=== PATIENT | male | born 2000 | race African-American/Black ===

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

== ENCOUNTER 2022-02-14 17:51 | Emergency (ER) | payer OTHER ==
[~2022-02-14] VITALS: Ht 182.9 cm; Wt 62.0 kg
[~2022-02-14 17:51] MED LIST changes: +IBUP-2028 MT; +METH-653 MT
[2022-02-14] MEDS ORDERED: IPRATROPIUM BROMIDE (0.02%) 0.5MG/2.5ML NEB HHN STA ×2 (18:02→19:14)
[2022-02-14] MEDS ORDERED: ALBUTEROL (0.083%) 2.5MG/3ML NEB HHN STA ×2 (18:02→19:14)
[2022-02-14] MEDS ORDERED: METHYLPREDNISOLONE SOD SUCC 125 MG/2 ML VIAL IV STA (18:07)
[2022-02-14] MEDS ORDERED: P50 MT (19:35)
[2022-02-14 21:18] VITALS: BP 98/69
== END 2022-02-14 21:21 | disposition home or self-care (01) ==
LOC: ER 18:29
DX: J98.01 Acute bronchospasm (principal); F12.10 Cannabis abuse, uncomplicated
CPT/HCPCS: 71045; 93005; 94640; 96374; 99284; J2930; Z7610

== ENCOUNTER 2022-04-08 16:36 | Emergency (ER) | payer MEDICAID, OTHER ==
[~2022-04-08] VITALS: Ht 195.6 cm; Wt 59.0 kg
[~2022-04-08 16:36] MED LIST changes: +P50 MT
[2022-04-08] MEDS ORDERED: IPRATROPIUM/ALBUTEROL 0.5-3(2.5)MG/3ML NEB HHN ONE (18:45)
[2022-04-08] MEDS ORDERED: PREDNISONE 20MG TABLET PO ONE (18:45)
[2022-04-08] MEDS ORDERED: P20 MT (21:09)
[2022-04-08] MEDS ORDERED: ALBU6.7H3 INH (21:09)
[2022-04-08] MEDS ORDERED: GUAI-450 MT (21:09)
[2022-04-08] MEDS ORDERED: ALBU05 NEB (21:09)
[2022-04-08 21:26] VITALS: BP 129/67
== END 2022-04-08 21:32 | disposition home or self-care (01) ==
LOC: ER 16:36
DX: J45.901 Unspecified asthma with (acute) exacerbation (principal); F12.10 Cannabis abuse, uncomplicated; Z79.899 Other long term (current) drug therapy
CPT/HCPCS: 94640; 99283; J7512; Z7610

== ENCOUNTER 2022-05-02 14:13 | Emergency (ER) | payer MEDICAID, OTHER ==
[~2022-05-02] VITALS: Ht 182.9 cm; Wt 64.0 kg
[~2022-05-02 14:13] MED LIST changes: +ALBU05 NEB; +ALBU6.7H3 INH; +GUAI-450 MT; +P20 MT
[2022-05-02] MEDS ORDERED: ALBUTEROL (0.083%) 2.5MG/3ML NEB HHN STA (16:20)
[2022-05-02] MEDS ORDERED: METHYLPREDNISOLONE SOD SUCC 125 MG/2 ML VIAL IV STA (16:20)
[2022-05-02] MEDS ORDERED: IPRATROPIUM BROMIDE (0.02%) 0.5MG/2.5ML NEB HHN STA (16:20)
[2022-05-02] MEDS ORDERED: ALBU6.7H15 INH (18:20)
[2022-05-02] MEDS ORDERED: P20 MT (18:20)
[2022-05-02 18:27] VITALS: BP 135/79
== END 2022-05-02 18:44 | disposition home or self-care (01) ==
LOC: ER 14:13
DX: J45.901 Unspecified asthma with (acute) exacerbation (principal); F12.10 Cannabis abuse, uncomplicated; Z79.899 Other long term (current) drug therapy
CPT/HCPCS: 94640; 96374; 99283; J2930; Z7610

== ENCOUNTER 2022-06-04 21:20 | Emergency (ER) | payer OTHER ==
[~2022-06-04] VITALS: Ht 190.5 cm; Wt 64.0 kg
[~2022-06-04 21:20] MED LIST changes: +ALBU6.7H15 INH
[2022-06-04 22:56] LABS: CLARITY URINE CLEAR (CLEAR); COLOR URINE YELLOW (YELLOW); KETONES URINE TRACE (NEGATIVE); LEUKOCYTE ESTERASE URINE NEGATIVE (NEGATIVE); NITRITE URINE NEGATIVE (NEGATIVE); OCCULT BLOOD URINE NEGATIVE (NEGATIVE); PH URINE 6.5 (4.5-8.0); PROTEIN URINE NEGATIVE (NEGATIVE); SPECIFIC GRAVITY URINE 1.019 (1.005-1.030); UROBILINOGEN URINE 0.2 E.U./dL (0.2-1.0)
[2022-06-05] MEDS ORDERED: MAGNESIUM/ALUMINUM HYDROXIDE/SIMETHICONE 30ML UDC PO STA (02:43)
[2022-06-05] MEDS ORDERED: VISCOUS LIDOCAINE 2% 15 ML UDC PO STA (02:43)
[2022-06-05] MEDS ORDERED: CEFTRIAXONE SODIUM 500 MG/VIAL IM ONE ×2 (02:45→04:30)
[2022-06-05] MEDS ORDERED: FAMOTIDINE 20MG TABLET PO ONE (02:45)
[2022-06-05] MEDS ORDERED: DOXY100C5 MT (03:51)
[2022-06-05] MEDS ORDERED: VISCOUS LIDOCAINE 2% 15 ML UDC PO NR (04:30)
[2022-06-05] MEDS ORDERED: LIDOCAINE HCL 1% 20ML VIAL (Pyxis) INJ INFIL ONE (04:30)
[2022-06-05] MEDS ORDERED: FAMOTIDINE 20MG TABLET PO NR (04:30)
[2022-06-05] MEDS ORDERED: MAGNESIUM/ALUMINUM HYDROXIDE/SIMETHICONE 30ML UDC PO NR (04:30)
[2022-06-05 04:54] VITALS: BP 116/86
== END 2022-06-05 04:53 | disposition home or self-care (01) ==
LOC: ER 21:32
DX: N34.2 Other urethritis (principal); N43.3 Hydrocele, unspecified; I86.1 Scrotal varices
CPT/HCPCS: 76870; 81003; 93976; 96372; 99285; J0696; J3490; Z7610

== ENCOUNTER 2022-08-22 18:08 | Emergency (ER) | payer OTHER ==
[~2022-08-22] VITALS: Ht 177.8 cm; Wt 69.0 kg
[~2022-08-22 18:08] MED LIST changes: +DOXY100C5 MT
[2022-08-22] MEDS ORDERED: KETOROLAC 15MG/ML VIAL IM ONE (21:15)
[2022-08-22 21:25] VITALS: BP 129/76
[2022-08-22 21:41] LABS: BASOPHILS % 0.5 % (0.0-2.0); EOSINOPHILS % 9.1 % (0.0-5.0); HEMATOCRIT. 49.3 % (42.0-52.0); LYMPHOCYTES % 29.2 % (20.0-50.0); MEAN CORPUSCULAR HEMOGLOBIN 27.7 pg (28.0-32.0); MEAN CORPUSCULAR VOLUME 85.5 fL (80.0-94.0); MEAN PLATELET VOLUME 8.5 fl (7.4-10.4); MONOCYTES % 5.5 % (2.0-8.0); NEUTROPHILS % 55.7 % (40.0-76.0); PLATELET 255 x1000/uL (130-400); RED BLOOD CELL COUNT 5.76 mill/uL (4.7-6.1); RED CELL DISTRIBUTION WIDTH 13.5 % (11.6-14.6)
[2022-08-22 21:42] LABS: CHLORIDE 105 mEq/L (98-107)
[2022-08-22] MEDS ORDERED: NAPR-681 MT (22:15)
== END 2022-08-22 22:20 | disposition home or self-care (01) ==
LOC: ER 18:08
DX: R51.9 Headache, unspecified (principal); R42 Dizziness and giddiness; J45.909 Unspecified asthma, uncomplicated; Z79.899 Other long term (current) drug therapy
CPT/HCPCS: 36415; 70450; 80053; 85025; 93005; 96372; 99285; J1885; Z7610

== ENCOUNTER 2022-10-07 12:30 | Emergency (ER) | payer OTHER ==
[~2022-10-07] VITALS: Ht 195.6 cm; Wt 63.6 kg
[~2022-10-07 12:30] MED LIST changes: +NAPR-681 MT
[2022-10-07 12:48] VITALS: O2SAT 99
[2022-10-07 13:15] LABS: CLARITY URINE CLEAR (CLEAR); COLOR URINE YELLOW (YELLOW); KETONES URINE NEGATIVE (NEGATIVE); LEUKOCYTE ESTERASE URINE NEGATIVE (NEGATIVE); NITRITE URINE NEGATIVE (NEGATIVE); OCCULT BLOOD URINE NEGATIVE (NEGATIVE); PROTEIN URINE NEGATIVE (NEGATIVE); SPECIFIC GRAVITY URINE 1.022 (1.005-1.030); UROBILINOGEN URINE 0.2 E.U./dL (0.2-1.0)
[2022-10-07] MEDS ORDERED: LIDOCAINE HCL 1% 20ML VIAL (Pyxis) INJ INFIL NR (16:15)
[2022-10-07] MEDS ORDERED: CEFTRIAXONE SODIUM 500 MG/VIAL IM NR (16:30)
[2022-10-07] MEDS ORDERED: DOXY-456 MT (17:58)
[2022-10-07] MEDS ORDERED: NAPR-681 PO (17:58)
[2022-10-07 18:04] VITALS: BP 109/60; PULSE 60; RESP 18; TEMP 98.2
[2022-10-10 05:12] LABS: NEISSERIA GONORRHOEAE NAA Negative (Negative)
== END 2022-10-07 18:06 | disposition home or self-care (01) ==
LOC: ER 14:46
DX: N34.2 Other urethritis (principal); N50.811 Right testicular pain; J45.909 Unspecified asthma, uncomplicated; Z79.899 Other long term (current) drug therapy
CPT/HCPCS: 99285; 93976; 87491; 87591; 81003; 76870; 96372; J0696; J3490